=== PATIENT | female | born 2000 | race Caucasian/White ===

== ENCOUNTER 2022-10-14 21:00 | Emergency (ER) | payer MEDICAID, OTHER ==
[2022-10-14 21:48] LABS: BILIRUBIN,URINE NEGATIVE (NEGATIVE); COLOR,URINE YELLOW; GLUCOSE,URINE NEGATIVE (NEGATIVE); KETONES,URINE NEGATIVE (NEGATIVE); LEUKOCYTE ESTERASE,URINE TRACE (NEGATIVE); NITRITE,URINE NEGATIVE (NEGATIVE); OCCULT BLOOD,URINE NEGATIVE (NEGATIVE); PH,URINE 7.5 (5.0-8.0); PROTEIN,URINE NEGATIVE (NEGATIVE); UROBILINOGEN,URINE 0.2 EU/dL (<2.0)
[2022-10-14 21:58] LABS: AMORPHOUS SEDIMENT,URINE MODERATE (NEGATIVE); AMPHETAMINES SCREEN, URINE NEGATIVE (CUTOFF=500); APPEARANCE,URINE SLT CLOUDY; BACTERIA,URINE FEW (NEGATIVE); BARBITURATE SCREEN,URINE NEGATIVE (CUTOFF=200); BENZODIAZEPINES SCREEN,URINE NEGATIVE (CUTOFF=150); BUPRENORPHINE SCREEN,URINE NEGATIVE (CUTOFF=10); EPITHELIAL CELLS,URINE MODERATE (NONE-FEW); METHADONE SCREEN, URINE NEGATIVE (CUTOFF=200); METHAMPHETAMINES SCREEN, URINE NEGATIVE (CUTOFF=500); MUCUS,URINE LIGHT (NONE-MOD); OXYCODONE SCREEN,URINE NEGATIVE (CUT0FF=100); PCP SCREEN,URINE NEGATIVE (CUTOFF=25); PROPOXYPHENE SCREEN,URINE NEGATIVE (CUTOFF=300); RBC,URINE 0-2 (0-2/HPF); THC SCREEN,URINE 20 NG/ML NEGATIVE (CUTOFF=50)
[2022-10-14 22:29] LABS: BASOPHILS ABSOLUTE AUTO 0.1 K/uL (0.0-0.1); BASOPHILS PERCENT AUTO 0.6 % (0.0-1.5); EOSINOPHILS ABSOLUTE AUTO 0.3 K/uL (0.0-0.7); EOSINOPHILS PERCENT AUTO 2.6 % (0.0-7.0); HEMATOCRIT 34.6 % (36.0-46.0); HEMOGLOBIN 10.7 g/dL (12.0-16.0); LYMPHOCYTES ABSOLUTE AUTO 3.3 K/uL (0.6-2.4); MEAN CORPUSCULAR HEMOGLOBIN 23.6 pg (27.0-32.0); MEAN CORPUSCULAR HGB CONC 30.9 g/dL (31.0-37.0); MEAN CORPUSCULAR VOLUME 76.2 fL (80.0-98.0); MONOCYTES ABSOLUTE AUTO 0.9 K/uL (0.0-0.8); MONOCYTES PERCENT AUTO 8.4 % (0.0-15.0); NEUTROPHILS ABSOLUTE AUTO 6.1 K/uL (1.4-5.7); NEUTROPHILS PERCENT AUTO 57.4 % (48.0-80.0); NRBC ABSOLUTE 0 K/uL; PLATELET COUNT,PLT 496 K/uL (150-400); RED BLOOD CELL COUNT 4.54 M/uL (4.30-5.90); WHITE BLOOD CELL COUNT,WBC 10.67 K/uL (4.0-11.0)
[2022-10-14 22:52] LABS: ACETAMINOPHEN <2.0 ug/mL; ALANINE AMINOTRANSFERASE,ALT 20 IU/L (14-63); ALBUMIN 3.9 g/dL (3.4-5.0); ALKALINE PHOSPHATASE 68 U/L (46-116); ASPARTATE AMNIOTRANSFERASE,AST 13 IU/L (15-37); BILIRUBIN TOTAL 0.3 mg/dL (0.2-1.0); BLOOD UREA NITROGEN,BUN 11 mg/dL (7.0-18.0); CALCIUM 8.9 mg/dL (8.5-10.1); CARBON DIOXIDE,CO2 24.8 mmol/L (21.0-32.0); CHLORIDE,CL 103 mmol/L (98-107); EST CRCL DRUG DOSING (CG) 81.21 mL/min; GLUCOSE RANDOM 100 mg/dL (74-106); MAGNESIUM 2.4 mg/dL (1.8-2.4); POTASSIUM,K 3.8 mmol/L (3.5-5.1); SALICYLATE 1.9 mg/dL (0.0-20.0); SODIUM,NA 142 mmol/L (136-145)
[2022-10-14 22:53] LABS: ESTIMATED GFR 81 mL/min (>60); ETHANOL BLOOD MEDICAL < 3.0 mg/dL
[2022-10-15] MEDS ORDERED: Acetaminophen 325 MG Tab PO STA (02:13)
[2022-10-15] MEDS ORDERED: Nitrofurantoin Monohydrate/Macrocrystalline 100 MG Cap PO ONE (08:51)
[2022-10-15] MEDS ORDERED: Scopolamine 1.5 MG Transdermal Patch TRDERM STA (13:47)
== END 2022-10-15 14:30 ==
LOC: MW.ED 21:00
DX: R45.851 Suicidal ideations (principal); Z88.2 Allergy status to sulfonamides
CPT/HCPCS: 36415; 80053; 80143; 80179; 80305; 80307; 81001; 81025; 83735; 85025; 93005; 99285; A9270; 93010; 99284